=== PATIENT | female | born 1975 | race Caucasian/White ===

== ENCOUNTER 2016-12-08 19:05 | Inpatient (IN) | payer BC, OTHER ==
[~2016-12-08] VITALS: Ht 170.2 cm; Wt 52.2 kg
[2016-12-08] MEDS ORDERED: HYDROXYZINE PAMOATE 25 MG CAPSULE PO PRN (22:45)
[2016-12-08] MEDS ORDERED: ONDANSETRON 4 MG/2 ML VIAL IM PRN (22:45)
[2016-12-08] MEDS ORDERED: MAG HYDROX/AL HYDROX/SIMETH 30 ML LIQUID UDC PO PRN (22:45)
[2016-12-08] MEDS ORDERED: LOPERAMIDE HCL 2 MG CAPSULE PO PRN ×2 (22:45)
[2016-12-08] MEDS ORDERED: MAGNESIUM HYDROXIDE 30 ML LIQUID UDC PO PRN (22:45)
[2016-12-08] MEDS ORDERED: ONDANSETRON ODT 4 MG TAB.RAPDIS SL PRN (22:45)
[2016-12-08] MEDS ORDERED: CLONIDINE HCL 0.1 MG TABLET PO PRN (22:45)
[2016-12-08] MEDS ORDERED: DICYCLOMINE HCL 20 MG TABLET PO PRN (22:45)
[2016-12-08] MEDS ORDERED: BUPRENORPHINE HCL 2 MG TAB.SUBL SL PRN (22:45)
[2016-12-08] MEDS ORDERED: diphenhydrAMINE 50 MG CAPSULE PO PRN (22:45)
[2016-12-08] MEDS ORDERED: MIRALAX 17 GM POWD.PACK PO PRN (22:45)
--- NOTE | 2016-12-09 00:10 | NUR ---
Start of Shift Patient is a 40-year old, male, admitted and escorted by [facility] at 0000 to unit. Patient reports being homeless at this time and recently has gotten out of retirement. Pt is originally from [place], [place]. Skin check done, no open skin noted. No edema noted. Pt is ambulatory with steady gait. Pt stands 5'7.5" and weighs 115 pounds per standing scale. Vital signs are as follows: BP-103/84, T-98.4, P-92, RR-18 and SPO2 on RA=99%. Patient is AAOx4 and with no anxiety noted at this time. Lung sounds clear bilaterally upon auscultation. No cough noted and bowel sounds are present on all quadrants. PERRLA and pupils are 3 mm upon visual check. Pt noted to have racing thoughts. No suicidal ideation and homicidal ideation. Pt reports NKA, on Regular Diet and is Full Code. Pt denies any seizure history. Per pt, withdrawal symptoms are goosebumps, irritability, anxiety, chills, abdominal cramps, restless arms and legs, hot flushes, sweats, generalized muscle pain. Substance history as follows: 1) Heroin: Per pt, started at age 29 and for the past 6 months was using 1 gm via IV daily. Last use was on 12/08/2016 at 1000, 1 gm IV. 2) Xanax: Per pt, started at age 25 and for the past 2 weeks was using 3 mg PO daily on average. Last use was on 12/07/2016at 0900, 2 mg PO. 3) Methamphetamine: Per pt, started at age16 and for the past 3 months was using 1/16 gm via smoking daily. Last use was on 12/08/2016 at 2000, smoked 1/16 gm. Patient verbalized the she does not drink alcohol. Patient informed PMHx of Anxiety, Depression, Left hand abscess I&D (2004), Rectal Polyps Removal (7 yrs old) and when she was 16 years old. No Suicidal Ideation nor Homicidal Ideation at this time. No PCP per pt. Also, pt informed that she has a Psychiatrist and she forgot the name. Home medications were reconciled. Per pt, she has been to many Detox and Treatment facilities but can only remember the last 4 as follows: 1) [facility] [place] 05/2016 for 22 days 2) [facility], [place], 04/2016 30 days 3) [facility], [place], [place] 01/2015 30 days 4) [place], [place] 2013 to 2014, 1 year Patient reports smoking cigarettes, intermittently, about 1 pack per 3 days. Oriented patient to room and instructed with the use of the call light, placed within reach. Fall, universal, seizure and safety precautions implemented. Kept patient warm, dry and comfortable. With c/o generalized muscle pain=6/10 and abdominal cramps. All needs met. Information relayed to Dr. Bateman. Patient refused Pneumonia vaccines despite explanation of risks and benefits. Out of Season for Flu. COWS=10. Will continue to monitor.
[2016-12-09 00:15] VITALS: BP 103/84
[2016-12-09 00:39] LABS: *URINE HCG, QUAL NEGATIVE (NEGATIVE)
[2016-12-09 00:55] LABS: *AMPHETAMINE, URINE POSITIVE (NEGATIVE); *BARBITURATE, URINE NEGATIVE (NEGATIVE); *CANNABINOID, URINE NEGATIVE (NEGATIVE); *COCCAINE, URINE NEGATIVE (NEGATIVE); *OPIATE, URINE POSITIVE (NEGATIVE); *PHENCYCLIDINE SCREEN,URINE NEGATIVE (NEGATIVE)
[2016-12-09] MEDS ORDERED: LOPERAMIDE HCL 2 MG CAPSULE ONE (01:29)
[2016-12-09] MEDS ORDERED: IBUPROFEN 400 MG TABLET ONE (01:29)
[2016-12-09] MEDS ORDERED: BUPRENORPHINE HCL 2 MG TAB.SUBL SL ONE (01:29)
[2016-12-09] MEDS ORDERED: METHOCARBAMOL 750 MG TABLET ONE (01:29)
[2016-12-09] MEDS: METHOCARBAMOL 750 MG TABLET PO PRN ×2 (01:30→18:38)
--- NOTE | 2016-12-09 01:40 | NUR ---
RN note PRN Subutex, Imodium and Robaxin Pt c/o experiencing the withdrawal symptoms-noted with goosebumps, increasing anxiety, tremors and racing thoughts. Pt also c/o diarrhea 1-time and generalized muscle pain=02/08. Administered Subutex 4 mg SL, Imodium 4 mg PO and Robaxin 750 mg PO. Will reassess. Addendum: 12/09/16 at 0225 by MALCOM QUINONES RN COWS=12
[2016-12-09] MEDS: IBUPROFEN 600 MG TABLET PO PRN ×2 (01:46→18:38)
--- NOTE | 2016-12-09 01:46 | NUR ---
RN note Motrin Pt c/o headache=5/10. Administered Motrin 600 mg PO. Will reassess.
[2016-12-09] MEDS ORDERED: IBUPROFEN 600 MG TABLET ONE (01:50)
--- NOTE | 2016-12-09 02:55 | NUR ---
RN note reassess Pt asleep on bed, with no facial grimacing nor SOB noted.
[2016-12-09 04:00] VITALS: BP 112/66
--- NOTE | 2016-12-09 07:07 | NUR ---
End of Shift Patient is a 40-year old, female, admitted for Heroin and Xanax Dependence. Pt uses Heroin 1 gm IV daily for 6 months prior to admission. Patient is AAOx4 and with no anxiety noted at this time. Pt denies any seizure history. Pt is ambulatory with steady gait, with intact skin. Fall, universal, seizure and safety precautions implemented. Kept patient warm, dry and comfortable. All needs met. Latest COWS=9, slept for 3 hours. Endorsed to AM shift nurse for continuity of care. Addendum: 12/09/16 at 0716 by MALCOM QUINONES RN Pt brought home meds but reports not taking any medications for the past 3 months.
[2016-12-09 08:00] VITALS: BP 110/66
--- NOTE | 2016-12-09 08:05 | NUR ---
START OF SHIFT NOTE Received pt from night nurse. Pt admitted for heroin, benzo, and methamphetamine dependence. Pt reports past medical hx of anxiety, depression, , left hand abscess, and polyp removal. Pt placed on 5 day Subutex taper. Pt received PRN Subutex, Motrin, Robaxin, and Imodium. Effective per night nurse. Received pt aox4 in stable condition. Pt reported anxiety, tremors, and body aches. Will continue to provide safe and supportive environment. Call light within in reach.
[2016-12-09] MEDS ORDERED: TUBERCULIN,PURIF.PROT.DERIV. 5 TU/0.1 ML TEST ID ONE (09:00)
[2016-12-09] MEDS: BUPRENORPHINE HCL 2 MG TAB.SUBL SL SCH ×4 (09:26→21:26)
[2016-12-09] MEDS: MULTIVITAMINS,THERAPEUTIC TABLET PO SCH (09:26)
[2016-12-09 12:00] VITALS: BP 115/70
[2016-12-09] MEDS ORDERED: QUETIAPINE FUMARATE 25 MG TABLET PO PRN (15:15)
[2016-12-09 16:00] VITALS: BP 109/67
--- NOTE | 2016-12-09 18:38 | NUR ---
PRN MEDS Pt c/o muscle aches and general body pain 01/08, non [pharmacological intervention ineffective. Administered Motrin 600mg/Robaxin 750mg as ordered. Will cont to provide safe and hazard free environment and monitor for effectiveness of the medications.
--- NOTE | 2016-12-09 19:08 | NUR ---
END OF SHIFT NOTE Pt is alert awake oriented x4 in stable condition. Pt admitted for heroin, benzo, and methamphetamine dependence. Pt reports past medical hx of anxiety, depression, , left hand abscess, and polyp removal. Pt started on 5 day Subutex taper for COWS score noted 10 tolerated well. Pt received PRN Motrin/Robaxin at 1838 for muscle ache and generalized body aches endorsed to night nurse to reassess the pt. Pt attended some groups and activities. Last COWS 9. Pt's total intake of fluids 1301ml voided x3, no BM. Safety measures in place, call light within reach. Pt endorsed to night nurse in stable condition.
--- NOTE | 2016-12-09 19:38 | NUR ---
REASSESSMENT Upon reassessment pt reported medications effective. Pain subside to 2/10, muscle cramps subside.
[2016-12-09 20:00] VITALS: BP 112/71
--- NOTE | 2016-12-09 20:00 | NUR ---
Start of Shift Pt is a 40 year old female admitted for Opiate/Benzo/Meth dependence, placed on 5 day Subutex taper. NKA, fall precautions, regular diet and full code. PMH: anxiety, at age 16, Left hand abscess 2004 and polyps removal in rectum at age 7. Upon assessment, pt reports anxiety, muscle aches, restlessness, tremors felt upon touch, skin flushed/clammy - noted with sweat, denies n/v/d, denies SOB/chest pain. Will administer scheduled medications. BP 112/71, pulse 77, SpO2 98%, respirations 16, temp 98.1. Safety measures in place, will continue to monitor.
[2016-12-09] MEDS ORDERED: PRAZOSIN HCL 1 MG CAPSULE PO SCH (21:00)
[2016-12-09] MEDS ORDERED: QUETIAPINE FUMARATE 100 MG TABLET PO SCH (21:00)
[2016-12-10] VITALS: BP 99/51
--- NOTE | 2016-12-10 | NUR ---
Vital Signs BP 99/51, pulse 67, SpO2 100%, respirations 14, temp 97.9 COWS assessment deferred d/t pt sleeping, to assess while pt is awake as ordered Safety measures in place, will continue to monitor.
[2016-12-10] MEDS: IBUPROFEN 600 MG TABLET PO PRN (00:38)
--- NOTE | 2016-12-10 00:38 | NUR ---
PRN Motrin Upon awakening, pt reports back pain, rated 5/10, requested relief. Motrin 600mg PRN administered. Safety measures in place, will continue to monitor.
--- NOTE | 2016-12-10 01:38 | NUR ---
PRN Motrin Reassessment Upon reassessment of Motrin, pt is sleeping, no verbal cues of pain noted. Safety measures in place, will continue to monitor
[2016-12-10 04:00] VITALS: BP 102/59
--- NOTE | 2016-12-10 04:00 | NUR ---
Vital Signs BP 102/59, pulse 68, SpO2 99%, respirations 14, temp 98 COWS assessment deferred d/t pt sleeping, to assess while pt is awake as ordered Safety measures in place, will continue to monitor.
--- NOTE | 2016-12-10 07:00 | NUR ---
End of Shift Pt is a 40 year old female admitted for Opiate/Benzo/Meth dependence, placed on 5 day Subutex taper. NKA, fall precautions, regular diet and full code. PMH: anxiety, at age 16, Left hand abscess 2004 and polyps removal in rectum at age 7. During shift, pt presented with anxiety, muscle aches, restlessness, tremors, clammy/flushed skin - scheduled taper medications administered, COWS 8. PRN Motrin 600mg administered for back pain, upon reassessment of Motrin pt was sleeping, no verbal cues of pain noted. Pt slept for 7 hours, intake of 355 ml PO and voids x1. Safety measures in place, Endorsed to day shift nurse.
[2016-12-10 08:00] VITALS: BP 100/60
--- NOTE | 2016-12-10 08:10 | NUR ---
START OF SHIFT: RECEIVED PT A/O X 4. SHE STATES SHE SLEPT WELL DUE TO THE SEROQUEL THAT SHE WAS GIVEN LAST NIGHT BUT FEELS GROGGY FROM IT. SHE REPORTS MUSCLE ACHES,CHILLS,SWEATS,RESTLESSNESS AND IRRITABILITY. SUBUTEX TAPER IN PROGRESS. COWS 8. ENCOURAGED INCREASED FLUIDS TO ASSIST IN FACILITATING DETOX PROCESS. WILL CONTINUE TO MONITOR AND MANAGE S/S OF W/D.
[2016-12-10] MEDS: MULTIVITAMINS,THERAPEUTIC TABLET PO SCH (09:49)
[2016-12-10] MEDS: BUPRENORPHINE HCL 2 MG TAB.SUBL SL SCH ×3 (09:50→20:43)
[2016-12-10 12:00] VITALS: BP 112/62
[2016-12-10] MEDS: DIAZEPAM 10 MG TABLET PO SCH ×3 (13:12→20:39)
[2016-12-10 16:00] VITALS: BP 123/71
--- NOTE | 2016-12-10 19:03 | NUR ---
END OF SHIFT: PT CONTINUES ON SUBUTEX TAPER AND MD STARTED PT ON MODIFIED VALIUM TAPER FOR BZO W/D. SHE CONTINUES TO PRESENT WITH ANXIOUS MOOD AND CONGRUENT AFFECT. SHE C/O ANXIETY , SWEATS,CHILLS,BODY ACHES ,STOMACH CRAMPS AND RESTLESSNESS TODAY. LAST COWS 7 CIWA 3. SHE STATES DETOX MEDS ARE EFFECTIVE. SHE HAD LITTLE INTERACTION WITH PEERS AND RESTED TODAY. WILL PASS SHIFT REPORT TO ONCOMING NIGHT NURSE.
[2016-12-10 20:00] VITALS: BP 110/66
--- NOTE | 2016-12-10 20:00 | NUR ---
Start of Shift Pt is a 40 year old female admitted for Opiate/Benzo/Meth dependence, placed on 5 day Subutex taper. NKA, fall precautions, regular diet and full code. PMH: anxiety, at age 16, Left hand abscess 2004 and polyps removal in rectum at age 7. Upon assessment, pt reports anxiety, muscle/joint aches, mild pin/needle sensations restlessness, skin flushed/clammy, denies n/v/d, denies SOB/chest pain. Will administer scheduled medications. BP 110/66, pulse 79, SpO2 99%, respirations 16, temp 98.. Safety measures in place, Will continue to monitor.
[2016-12-10] MEDS: GABAPENTIN 300 MG CAPSULE PO SCH (20:39)
[2016-12-10] MEDS: QUETIAPINE FUMARATE 25 MG TABLET PO SCH (20:39)
[2016-12-10] MEDS: PRAZOSIN HCL 1 MG CAPSULE PO SCH (20:40)
[2016-12-10] MEDS ORDERED: QUETIAPINE FUMARATE 100 MG TABLET PO SCH (21:00)
[2016-12-11] VITALS: BP 96/54
--- NOTE | 2016-12-11 | NUR ---
Vital Signs BP 96/54, pulse 82, SpO2 97%, respirations 14, temp 97.9, no reports of pain COWS/CIWA Assessment deferred d/t pt sleeping, to assess while pt is awake as ordered. Pt is sleeping, Safety measures in place, Will continue to monitor.
[2016-12-11 04:00] VITALS: BP 94/59
--- NOTE | 2016-12-11 04:00 | NUR ---
Vital Signs BP 94/59, pulse 70, SpO2 98%, respirations 14, temp 97.9, no reports of pain COWS/CIWA Assessment deferred d/t pt sleeping, to assess while pt is awake as ordered. Pt is sleeping, Safety measures in place, Will continue to monitor.
--- NOTE | 2016-12-11 07:00 | NUR ---
End of Shift Pt is a 40 year old female admitted for Opiate/Benzo/Meth dependence, placed on 5 day Subutex taper and 4 day Valium taper. NKA, fall precautions, regular diet and full code. PMH: anxiety, at age 16, Left hand abscess 2004 and polyps removal in rectum at age 7. During shift, pt presented with anxiety, muscle/joint aches, mild pin/needles sensations, restlessness, skin flush/clammy scheduled taper medications administered, CIWA 3 and COWS 8. No PRN medications administered during shift. Pt slept for 7 hours, intake of 1047 ml PO and voids x2. Safety measures in place, Endorsed to day shift nurse.
[2016-12-11 08:00] VITALS: BP 100/60
--- NOTE | 2016-12-11 08:05 | NUR ---
START OF SHIFT: RECEIVED PT A/O X 4. SHE PRESENTS WITH ANXIOUS MOOD AND CONGRUENT AFFECT. SHE REPORTS SHE SLEPT WELL. SHE C/O BODY ACHES,CHILLS,ANXIETY,SWEATS AND FATIGUE. MODIFIED VALIUM/5D SUBUTEX TAPER IN PROGRESS.COWS 6 CIWA 2. ENCOURAGED INCREASED FLUIDS. ENCOURAGED GROUP ATTENDANCE TO IMPROVE COPING SKILLS AND PREVENT RELAPSE. WILL CONTINUE TO MONITOR AND PROVIDE SAFE AND SUPPORTIVE ENVIRONMENT.
[2016-12-11] MEDS: GABAPENTIN 300 MG CAPSULE PO SCH ×3 (08:36→21:41)
[2016-12-11] MEDS: MULTIVITAMINS,THERAPEUTIC TABLET PO SCH (08:36)
[2016-12-11] MEDS: DIAZEPAM 5 MG TABLET PO SCH ×4 (08:37→21:41)
[2016-12-11] MEDS ORDERED: BUPRENORPHINE HCL 2 MG TAB.SUBL SL SCH (09:00)
[2016-12-11] MEDS ORDERED: KETOROLAC TROMETHAMINE 30 MG INJ IM PRN (11:30)
[2016-12-11 12:00] VITALS: BP 124/82
[2016-12-11] MEDS: buPROPion XL 150 MG TAB.SR.24H PO SCH (12:28)
[2016-12-11] MEDS ORDERED: CLONIDINE HCL 0.1 MG TABLET PO SCH (15:00)
[2016-12-11] MEDS: DICYCLOMINE HCL 20 MG TABLET PO SCH ×2 (15:45→21:41)
[2016-12-11] MEDS: BACLOFEN 10 MG TABLET PO SCH ×2 (15:45→21:40)
[2016-12-11] MEDS: BUPRENORPHINE HCL 2 MG TAB.SUBL SL SCH ×2 (15:46→21:43)
[2016-12-11 16:00] VITALS: BP 105/66
--- NOTE | 2016-12-11 16:36 | NUR ---
PT CONTINUES TO REFUSE BLOOD WORK AND SHE STATES IT IS BECAUSE SHE IS A HARD STICK. AWARE.
--- NOTE | 2016-12-11 19:08 | NUR ---
END OF SHIFT: PT CONTINUES ON MODIFIED VALIUM AND SUBUTEX TAPER. SHE COMPLAINED OF CHILLS, FATIGUE, ANXIETY BODY ACHES, AND WATERY EYES THIS MORNING. SHE STATES DETOX MEDS ARE MILDLY EFFECTIVE IN REDUCING S/S OF W/D. NEW ORDER FOR SCHEDULED BACLOFEN AND CLONIDINE. PT NAPPED THIS AFTERNOON FOR A COUPLE OF HOURS. LAST COWS 6 CIWA 2. SHE STATES SHE WILL SHOWER TONIGHT . ENCOURAGED PROPER NUTRITION AND INCREASED FLUIDS. ENCOURAGED GROUP ATTENDANCE. WILL PASS SHIFT REPORT TO ONCOMING NIGHT NURSE.
--- NOTE | 2016-12-11 19:10 | NUR ---
Start of Shift - Subutex 4mg x1 Administration Pt is a 40 year old female admitted for Opiate/Benzo/Meth dependence, placed on 5 day Subutex taper. NKA, fall precautions, regular diet and full code. PMH: anxiety, at age 16, Left hand abscess 2004 and polyps removal in rectum at age 7. Upon assessment, pt reports anxiety, pt is fidgety, restless unable to sit still, muscle/joint aches, skin flushed/clammy, mildly nausea, denies SOB/chest pain. COWS 8. Administered Subutex 4mg x1 as ordered. Maalox 30ml administered for heartburn. Safety measures in place, will continue to monitor. Addendum: 12/11/16 at 2341 by ADAMARIS POSADAS RN Pt is placed on 5 day Subutex taper/4 day Valium taper
[2016-12-11] MEDS ORDERED: BUPRENORPHINE HCL 2 MG TAB.SUBL SL ONE (19:15)
[2016-12-11 20:00] VITALS: BP 120/72
--- NOTE | 2016-12-11 20:25 | NUR ---
Subutex 4mg x1 Reassessment Upon reassessment, pt is in room, in bed, watching TV. Pt continues to report muscle aches throughout body, anxiety, skin noted to be flushed, denies nausea, Pt states, "I feel a little steadier". COWS 6. Pt denies heartburn - Maalox effective. Will administered scheduled routine medications. Safety measures in place, Will continue to monitor.
[2016-12-11] MEDS: QUETIAPINE FUMARATE 25 MG TABLET PO SCH (21:40)
[2016-12-11] MEDS: PRAZOSIN HCL 1 MG CAPSULE PO SCH (21:40)
[2016-12-12] VITALS: BP_SYST 108; BP_SYST 116; BP_DIAS 63; BP_DIAS 79
--- NOTE | 2016-12-12 | NUR ---
Vital Signs BP 116/79, pulse 94, SpO2 99%, respirations 14, temp 98, no reports of pain 0/10. COWS/CIWA assessment deferred d/t pt sleeping, to assess while pt is awake, as ordered. Safety measures in place, Will continue to monitor.
--- NOTE | 2016-12-12 04:00 | NUR ---
Pt refused to be woken up for VS at this time. Pt was encouraged x3 - risks and benefits explained - pt continued to refuse. COWS/CIWA deferred d/t pt sleeping to assess while awake as ordered. Safety measures in place. Will continue to monitor.
--- NOTE | 2016-12-12 07:00 | NUR ---
End of Shift Pt is a 40 year old female admitted for Opiate/Benzo/Meth dependence, placed on 5 day Subutex taper/4 day Valium taper. NKA, fall precautions, regular diet and full code. PMH: anxiety, at age 16, Left hand abscess 2004 and polyps removal in rectum at age 7. During shift, pt presented with anxiety, pt was fidgety, restless unable to sit still, muscle/joint aches, skin flushed/clammy, mildly nausea, administered Subutex 4mg x1 as ordered. Scheduled medications administered as well, effective in management of s/s of withdrawal. COWS 8 decreased to COWS 6. CIWA 2. Maalox 30ml administered for heartburn, effective as reported per pt. Pt continues on Subutex and Valium taper. Pt slept for 5 hours, intake of 2292 ml PO and voids x2. Safety measures in place, call light within reach, side rails up x2, bed locked and in low position. Endorsed to day shift nurse.
[2016-12-12 08:00] VITALS: BP 108/71
--- NOTE | 2016-12-12 08:00 | NUR ---
START OF SHIFT Report received from angle furnaceman nurse. Received patient laying in her bed. Pt is a 40 year old female admitted for medically supervised withdrawal from Opiates. Patient is full code with NKA, on fall precautions and regular diet. On 4 day Valium taper/5 Day Subutex taper. On assessment this AM: CIWA: 4 and COWS: 12. Patient reports muscle/joint aches, difficult sitting still, diaphoresis, anxiety, stuffy nose and teary eyes, goosebumps, stomach cramps. Patient denies SOB/chest pain. Med compliant. Subutex and Valium given as ordered. Patient reports that she is supposed to take 4mg, patient was reminded she is on taper dose, MD was notified. Patient has good appetite. No PRN given at this time. Will continue to monitor patient.
[2016-12-12] MEDS: CLONIDINE HCL 0.1 MG TABLET PO SCH ×2 (08:47→15:17)
[2016-12-12] MEDS: MULTIVITAMINS,THERAPEUTIC TABLET PO SCH (08:47)
[2016-12-12] MEDS: DICYCLOMINE HCL 20 MG TABLET PO SCH ×3 (08:47→21:18)
[2016-12-12] MEDS: GABAPENTIN 300 MG CAPSULE PO SCH ×3 (08:47→21:18)
[2016-12-12] MEDS: buPROPion XL 150 MG TAB.SR.24H PO SCH (08:48)
[2016-12-12] MEDS: BACLOFEN 10 MG TABLET PO SCH ×2 (08:48→15:16)
[2016-12-12] MEDS: DIAZEPAM 5 MG TABLET PO SCH ×2 (08:51→15:17)
[2016-12-12] MEDS: BUPRENORPHINE HCL 2 MG TAB.SUBL SL SCH ×3 (08:54→21:18)
[2016-12-12 12:00] VITALS: BP 93/55
[2016-12-12 15:14] VITALS: BP 119/70
[2016-12-12 16:00] VITALS: BP 116/63
--- NOTE | 2016-12-12 17:27 | NUR ---
PRN VISTARIL Patient appears extremely anxious prior to lab draw, she was hyperverbal, restless and crying states she was afraid to get stuck by needles. Patient was given Vistaril po. Will continue to monitor patient.
[2016-12-12 17:53] LABS: BASOPHILS # (AUTO) 0.3 K/uL (0.0-0.2); BASOPHILS % (AUTO) 2.6 % (0.0-2.0); EOSINOPHILS # (AUTO) 0.5 K/uL (0.0-0.7); EOSINOPHILS % (AUTO) 4.4 % (0.0-7.0); HEMATOCRIT 39.4 % (37.0-47.0); HEMOGLOBIN 13.9 g/dL (12.0-16.0); LYMPHOCYTES # (AUTO) 2.4 K/uL (0.8-4.8); LYMPHOCYTES % (AUTO) 20.6 % (20.5-51.5); MEAN CORPUSCULAR HEMOGLOBIN 29.6 uug (27.0-31.0); MEAN CORPUSCULAR HGB CONC 35 g/dL (32.0-37.0); MEAN CORPUSCULAR VOLUME 84.3 fL (81.0-99.0); MONOCYTES # (AUTO) 0.6 K/uL (0.1-1.30); MONOCYTES % (AUTO) 5.4 % (0.0-11.0); NEUTROPHILS # (AUTO) 7.7 K/uL (1.8-8.9); PLATELET COUNT (AUTO) 271 K/uL (150-450); RED BLOOD CELL COUNT(AUTO) 4.68 MIL/uL (4.20-5.40); RED CELL DISTRIBUTION WIDTH 12.5 % (11.5-14.5); WHITE BLOOD COUNT (AUTO) 11.5 K/uL (4.0-11.2)
[2016-12-12] MEDS ORDERED: LORAZEPAM 1 MG TABLET PO ONE (18:00)
[2016-12-12] MEDS ORDERED: BUPRENORPHINE HCL 2 MG TAB.SUBL SL ONE (18:00)
--- NOTE | 2016-12-12 18:25 | NUR ---
REASSESSMENT PRN Vistaril effective, patient appears less agitated, walking around and less hyperverbal.
--- NOTE | 2016-12-12 19:29 | NUR ---
END OF SHIFT Pt is a 40 year old female admitted for medically supervised withdrawal from Opiates. Patient is full code with NKA, on fall precautions and regular diet. Patient reports muscle/joint aches, restlessness, diaphoresis, anxiety, stuffy nose, teary eyes, goosebumps, stomach cramps. Patient denies SOB/chest pain. Subutex and Valium given as ordered. Patient wants to discuss desire to get off Valium taper and start on Ativan taper, complains of not feeling herself, not being able to interact with others and participate in groups. MD was notified, patient had discussion with the MD. Patient appears anxious about having lab drawn due to being hard stick and requested for good seaming inspector. Lab was notified of the request. Patient was noted crying due to anxiety, pt. was reassured and assisted to calm down. Vistaril prn given, mildly effective. Lab drawn but hemolyzed, lab unable to process sample, MD was notified. Patient not willing to have another lab drawn. Patient also received ONE time Ativan and Subutex as ordered. Most recent assessment: CIWA: 11 and COWS: 11. grinder machine knife setternarrow fabric calenderer will continue to monitor patient.
--- NOTE | 2016-12-12 19:40 | NUR ---
START OF SHIFT NOTE Received report from day shift nurse. Pt is 40 y o female, admitted on 12/08/16 for heroin and Xanax dependence, pt reported also using methamphetamine. Pt is on 5 day Subutex taper started 12/09/16 and Ativan taper (pt has started Valium taper on 12/10/16, was changed to Ativan on 12/12/16 per pt c/o feeling drowsy after taking Valium). Pt aaox4, gait steady. Pt reports anxiety, obviously irritated aeb fast speech and flight of thoughts, inability to sit still and hyperactivity. Pt reports sweats, chills, body aches 03/10. Skin intact, barely sweaty. Skin intact, barely sweaty. RR unlabored, heart rate regular. Last BM 12/12/16, pt denies n/v/d. Pt denies urinary difficulties. Pt is on fall precautions, call light within reach, bed locked in lowest position, side rails up x 2. Will continue with plan of care
[2016-12-12 20:00] VITALS: BP 119/68
[2016-12-12] MEDS ORDERED: LORAZEPAM 1 MG TABLET PO SCH (21:00)
[2016-12-12] MEDS ORDERED: BACLOFEN 10 MG TABLET PO SCH (21:00)
[2016-12-12] MEDS: BACLOFEN 20 MG TABLET PO SCH (21:19)
[2016-12-12] MEDS: QUETIAPINE FUMARATE 25 MG TABLET PO SCH (21:22)
[2016-12-12] MEDS: PRAZOSIN HCL 1 MG CAPSULE PO SCH (21:22)
--- NOTE | 2016-12-12 21:55 | NUR ---
behavioral note Pt comes to nursing station and asks about "extra Subutex". Pt has received scheduled 2 mg of Subutex and all administered meds were explained to pt with pt verbal agreement and understanding of indications/ doses/ Pt states "we had a deal with Dr Bateman that if i had blood drawn i could get extra subutex". As per rerpot from day shift nurse, pt received one time ativan for anxiety before blood draw, per day shift nurse no extra subutex was ordered. Explained to pt that she just received scheduled dose and that she has non-narcotic meds for s/s management throughout the night. Pt stated "i will just leave ama then", yet in 5min pt comes back and asks about Subutex again. Pt explained that no "extra dose" can be administered at this time, pt verbilized understanding
[2016-12-12] MEDS: IBUPROFEN 600 MG TABLET PO PRN (22:35)
--- NOTE | 2016-12-12 22:35 | NUR ---
PRN MOTRIN Pt c/o back aches and generalized aches 03/10. Administered [id number] mg PO prn as ordered. Warm compress applied for comfort. Fall precautions in place
--- NOTE | 2016-12-12 23:30 | NUR ---
PRN REASSESSMENT Pt states pain decrease to 4/10. Pt states she feels like going to sleep now. Fall precautions in place, will continue to monitor
[2016-12-13] VITALS: BP 108/63
--- NOTE | 2016-12-13 | NUR ---
CIWA/COWS COWS/CIWA assessment deferred per MD order; pt sleeping soundly, fall precautions in place, will continue to monitor Addendum: 12/13/16 at 0427 by PORTILLO DURON RN Amended: Links added.
--- NOTE | 2016-12-13 | NUR ---
CIWA/COWS COWS/CIWA assessment deferred per MD order; pt sleeping soundly, fall precautions in place, will continue to monitor Addendum: 12/13/16 at 0426 by PORTILLO DURON RN Amended: Links added.
[2016-12-13 04:00] VITALS: BP 98/59
--- NOTE | 2016-12-13 04:00 | NUR ---
CIWA/COWS COWS/CIWA assessment deferred per MD order; pt sleeping soundly, fall precautions in place, will continue to monitor Addendum: 12/13/16 at 0709 by PORTILLO DURON RN Amended: Links added.
--- NOTE | 2016-12-13 06:50 | NUR ---
PRN MOTRIN Pt c/o back aches and generalized aches 5/10. Administered Motrin 600 mg PO prn as ordered. Warm compress applied for comfort. Fall precautions in place
[2016-12-13] MEDS: IBUPROFEN 600 MG TABLET PO PRN ×2 (06:53→20:03)
--- NOTE | 2016-12-13 07:42 | NUR ---
END OF SHIFT NOTE Pt is 40 y o female, admitted on 12/08/16 for heroin and Xanax dependence, pt reported also using methamphetamine. Pt is on day 5 of 5 day Subutex taper started 12/09/16, and day 4 of 4 day Ativan taper (pt has started Valium taper on 12/10/16, was changed to Ativan on 12/12/16 per pt c/o feeling drowsy after taking Valium). Pt was reporting anxiety, body aches 7/10, chills, stomach cramps; pt observed with clammy skin, restlessness. Scheduled medications were administered as ordered. Pt received prn Motrin for body aches x 2, pt reported decrease in pain level to 4/10. Pt was observed with drug-seeking behavior during the shift, no cheeking of medications noted. Pt slept for 6 hrs, woke up with unsteady gait, was assisted to bed with fall precautions in place. Pt currently in bed, sleeping soundly, report endorsed to day shift nurse. Addendum: 12/13/16 at 0754 by PORTILLO DURON RN Carlos A MARIANO 11, DORON 8 at 1999, VSS
--- NOTE | 2016-12-13 07:50 | NUR ---
START OF SHIFT Rcvd client in room, she is A/O x 4, she presents with irritable mood, flat affect, she reports anxiety, fatigue, and leg restlessness and generalized body aches 12/09. Encouraged increased fluids as tolerated. Encouraged group therapy attendance. Per hourly shift manager nurse, client is a 40 year old female admitted for withdrawal from heroin. She is on 5 day Subutex taper/ 4 day Ativan taper, tolerating well. Last COWS /WA 8 @ 1999, She had PRN Motrin X 2 for gereralized body aches, noted effective. She slept 7 hrs. She reports PMH Anxiety, Depression, Insomnia, Chronic tobacco use, Opioid use disorder, Alcohol use disorder, Anxiolytic use disorder, Stimulant use disorder. Surgical history, Rectal surgery w/ polypectomy, Left hand abscess incision and drainage. Client denies any induced-seizure withdrawal. She is full code, regular diet, NKA. Client is on seizure precautions. Side rails up/padded x 2, call light within reach, bed locked in lowest positions. Will continue with plan of care
[2016-12-13 08:00] VITALS: BP 91/58
--- NOTE | 2016-12-13 08:15 | NUR ---
CIWA/COWS COWS/CIWA assessment deferred per MD order; pt sleeping soundly, fall precautions in place, will continue to monitor
[2016-12-13] MEDS: DICYCLOMINE HCL 20 MG TABLET PO SCH ×3 (09:00→21:42)
[2016-12-13] MEDS: GABAPENTIN 300 MG CAPSULE PO SCH ×3 (09:00→21:42)
[2016-12-13] MEDS: MULTIVITAMINS,THERAPEUTIC TABLET PO SCH (09:00)
[2016-12-13] MEDS: LORAZEPAM 1 MG TABLET PO SCH ×2 (09:00→21:42)
[2016-12-13] MEDS: BUPRENORPHINE HCL 2 MG TAB.SUBL SL SCH ×2 (09:00→21:42)
[2016-12-13] MEDS ORDERED: buPROPion SR 100 MG TABLET.SA PO SCH (09:00)
[2016-12-13] MEDS: buPROPion XL 150 MG TAB.SR.24H PO SCH ×2 (09:00→15:09)
[2016-12-13] MEDS ORDERED: BUPRENORPHINE HCL 2 MG TAB.SUBL SL SCH (09:00)
[2016-12-13] MEDS ORDERED: DIAZEPAM 5 MG TABLET PO SCH (09:00)
[2016-12-13] MEDS: BACLOFEN 20 MG TABLET PO SCH ×3 (09:00→21:42)
[2016-12-13] MEDS: CLONIDINE HCL 0.1 MG TABLET PO SCH ×3 (09:00→23:24)
--- NOTE | 2016-12-13 09:59 | NUR ---
schedule medications for 0900 held client is too sedated, RR 16, Charge nurse and Dr. Bateman notified. Call light within reach. Will continue to monitor.
[2016-12-13] MEDS ORDERED: BUPRENORPHINE HCL 2 MG TAB.SUBL SL ONE ×2 (11:30→15:30)
[2016-12-13] MEDS ORDERED: IBUPROFEN 600 MG TABLET PO ONE (11:30)
[2016-12-13] MEDS ORDERED: LORAZEPAM 1 MG TABLET PO ONE (11:30)
[2016-12-13 12:00] VITALS: BP 106/69
--- NOTE | 2016-12-13 12:22 | NUR ---
one time Subutes 4mg, Ativan 1mg, Motrin 600mg Client reports anxiety, chills, goosebump, generalized body aches 02/08. Dr. Bateman ordered one time of above meds. call light within reach.
--- NOTE | 2016-12-13 13:22 | NUR ---
Reassessment one time Subutes 4mg, Ativan 1mg, Motrin 600mg Client is in bed, watching TV, she reports feeling less anxious at this time, generalized body aches 0/10. call light within reach.
[2016-12-13 16:00] VITALS: BP 111/67
[2016-12-13] MEDS: buPROPion SR 100 MG TABLET.SA PO SCH (16:26)
[2016-12-13] MEDS: METHOCARBAMOL 750 MG TABLET PO PRN (16:38)
[2016-12-13] MEDS: ACETAMINOPHEN 325 MG TABLET PO PRN (16:38)
--- NOTE | 2016-12-13 16:38 | NUR ---
PRN Tylenol, Robaxin Client reports generalized body aches 02/08 Robaxin 750mg, Tylenol 650mg PO administered, risk.benefits discuss. Call light within reach.
--- NOTE | 2016-12-13 17:38 | NUR ---
Reassessment PRN Tylenol, Robaxin Client reports relief from generalized body aches 0/10 Robaxin 750mg, Tylenol 650mg effective. Call light within reach.
--- NOTE | 2016-12-13 19:45 | NUR ---
END OF SHIFT Client is 40 year old female, admitted on 12/08/16 for heroin and Xanax withdrawal.Client reports anxiety, chills, stomach cramps. One time dose Subutex 4mg, Ativan 1mg, Motrin 600mg for anxiety, chills, body aches, noted effective. PRN Tylenol, Robaxin for generalized body aches, noted effective. Client denies any induced-seizure withdrawal. She is full code, regular diet, NKA. Client is on seizure precautions. Side rails up/padded x 2, call light within reach, bed locked in lowest positions. Will continue with plan of care
--- NOTE | 2016-12-13 19:46 | NUR ---
Start of shift note Received report from day shift nurse. Pt is a 41 yo female, A+Ox4, presenting to [facility] for Opiate/Benzo/Meth dependence. Pt has NKA, is Full Code status, and on Regular diet. Pt is on fall precautions. Pt has HX of Anxiety, Depression, , Left hand abscess, and Polyps removal. Pt is on 5 day Subutex and 4 day Ativan tapers, tolerated well. No s/s of distress noted at this time. Respirations even and unlabored. Will continue to monitor.
--- NOTE | 2016-12-13 20:03 | NUR ---
PRN Motrin Pt c/o general body pain 02/08 and requested for PRN Motrin. Medication given and tolerated well. Will reassess within 1 HR. Will continue to monitor.
[2016-12-13 20:18] VITALS: BP 102/64
[2016-12-13] MEDS: PRAZOSIN HCL 1 MG CAPSULE PO SCH (21:00)
--- NOTE | 2016-12-13 21:00 | NUR ---
PRN Motrin Reassessment Medication effective. Pain level reduced to 3/10. No s/s of ASE/distress noted at this time. Respirations even and unlabored. Will continue to monitor.
[2016-12-13] MEDS: QUETIAPINE FUMARATE 25 MG TABLET PO SCH (23:24)
--- NOTE | 2016-12-13 23:24 | NUR ---
PRN Clonidine Pt c/o anxiety and requested for PRN Clonidine. Medication given and tolerated well. Will reassess within 1 HR. Will continue to monitor.
[2016-12-14 00:14] VITALS: BP 116/67
--- NOTE | 2016-12-14 00:20 | NUR ---
PRN Clonidine Reassessment Medication effective. Pt verbalizes reduction in anxiety. No s/s of ASE/distress noted at this time. Respirations even and unlabored. Will continue to monitor.
[2016-12-14 04:14] VITALS: BP 90/43
--- NOTE | 2016-12-14 07:03 | NUR ---
End of shift note Pt is a 41 yo female, A+Ox4, presenting to [facility] for Opiate/Benzo/Meth dependence. Pt has NKA, is Full Code status, and on Regular diet. Pt is on fall precautions. Pt has HX of Anxiety, Depression, , Left hand abscess, and Polyps removal. Pt is on 5 day Subutex and 4 day Ativan tapers, tolerated well. Pt was given PRN Motrin @2002 and PRN Clonidine @2324. Pt slept for a total of 5 HRS. Last COWS: 2 and Last CIWA: 2 @0400. No s/s of distress noted at this time. Respirations even and unlabored. Will endorse to day shift nurse.
--- NOTE | 2016-12-14 07:40 | NUR ---
START OF SHIFT Client is is A/O x 4, she presents with flat affect, she reports anxiety, fatigue, and leg restlessness and chills, she denies N/V/D. Encouraged increased fluids as tolerated. Encouraged group therapy attendance. Per plant breeder scientist nurse, client is a 40 year old female admitted for withdrawal from heroin. Today0 is last 5 day Subutex taper, she completed 4 day Ativan taper, tolerating well. Last COWS 2/CIWA 2 @ 0400, She had PRN Motrin X 2 for generalized body aches, Clonidine for withdrawal symptoms noted effective. She slept 5 hr. She is full code, regular diet, NKA. Client is on seizure precautions. Side rails up/padded x 2, call light within reach, bed locked in lowest positions. Will continue with plan of care
--- NOTE | 2016-12-14 08:30 | NUR ---
ABNORMAL LAB VALUES Dr. Benitez was notified, client is elin castillo. Will continue to monitor and f-up with new orders. Addendum: 12/14/16 at 1611 by LORIE NOLAND RN wrong client
[2016-12-14] MEDS: MULTIVITAMINS,THERAPEUTIC TABLET PO SCH (08:43)
[2016-12-14] MEDS: GABAPENTIN 300 MG CAPSULE PO SCH ×3 (08:43→21:12)
[2016-12-14] MEDS: IBUPROFEN 600 MG TABLET PO PRN (08:43)
[2016-12-14] MEDS: buPROPion SR 100 MG TABLET.SA PO SCH (08:44)
[2016-12-14] MEDS: buPROPion XL 150 MG TAB.SR.24H PO SCH (08:44)
[2016-12-14] MEDS: BACLOFEN 20 MG TABLET PO SCH ×3 (08:44→21:11)
[2016-12-14] MEDS: DICYCLOMINE HCL 20 MG TABLET PO SCH ×3 (08:44→21:11)
[2016-12-14 08:50] VITALS: BP 100/70
[2016-12-14] MEDS ORDERED: CLONIDINE HCL 0.1 MG TABLET PO SCH (09:00)
[2016-12-14] MEDS ORDERED: BUPRENORPHINE HCL 2 MG TAB.SUBL SL SCH (09:00)
[2016-12-14 12:00] VITALS: BP 105/58
[2016-12-14] MEDS ORDERED: PRAZ1CAP2 PO (13:06)
[2016-12-14] MEDS ORDERED: Gabapentin PO ×2 (13:06)
[2016-12-14] MEDS ORDERED: QUET25TA PO (13:06)
[2016-12-14] MEDS ORDERED: Ibuprofen PO (13:06)
[2016-12-14] MEDS ORDERED: METH-33 PO (13:06)
[2016-12-14] MEDS ORDERED: Bupropion Hcl PO (13:06)
[2016-12-14] MEDS ORDERED: HYDR-3895 PO (13:06)
[2016-12-14] MEDS ORDERED: DICY20TA28 PO (13:06)
--- NOTE | 2016-12-14 15:00 | NUR ---
Magnesium 1.6 replaced with Mag Ox 400mg PO will continue to monitor. Addendum: 12/14/16 at 1611 by LORIE NOLAND RN wrong client
[2016-12-14] MEDS ORDERED: BACLOFEN 10 MG TABLET PO ONE (15:15)
[2016-12-14] MEDS ORDERED: CLONIDINE HCL 0.1 MG TABLET PO ONE (15:15)
--- NOTE | 2016-12-14 15:33 | NUR ---
ONE TIME DOSE Baclofen 10mg and Clonidine 0.1mg PO given respectively for muscle spasms and anxiety, irritability, client is crying, she reports chills. wCall light within reach. will continue to monitor.
[2016-12-14 16:00] VITALS: BP 99/54
--- NOTE | 2016-12-14 16:33 | NUR ---
REASSESSMENT ONE TIME DOSE Baclofen 10mg and Clonidine 0.1mg Client is in room soud asleep, easy to arouse, RR 16. Will continue to monitor. Call light within reach.
[2016-12-14] MEDS: METHOCARBAMOL 750 MG TABLET PO PRN (18:26)
--- NOTE | 2016-12-14 18:26 | NUR ---
PRN ROBAXIN 750MG, TYLENOL 655MG given respectively for muscle pain and discomfort, Call light within reach. will continue to monitor.
[2016-12-14] MEDS: ACETAMINOPHEN 325 MG TABLET PO PRN (18:27)
--- NOTE | 2016-12-14 19:26 | NUR ---
REASSESSMENT PRN ROBAXIN 750MG, TYLENOL 655MG effective, client reports relief from muscle pain and discomfort from 6/10 to 0/10, Call light within reach. will continue to monitor.
--- NOTE | 2016-12-14 19:43 | NUR ---
END OF SHIFT Client is 40 year old female, admitted on 12/08/16 for heroin and Xanax withdrawal.Client reports anxiety, she presents with irritable mood. ONE TIME DOSE Baclofen 10mg and Clonidine 0.1mg PO given respectively for muscle spasms and anxiety, irritability, client is crying, she reports chill and PRN ROBAXIN 750MG, TYLENOL 655MG given respectively for muscle pain and discomfort, noted effective. She is full code, regular diet, NKA. Client is on seizure precautions. Side rails up/padded x 2, call light within reach, bed locked in lowest positions. Endorsed to incoming nurse.
[2016-12-14 20:00] VITALS: BP 91/52
--- NOTE | 2016-12-14 21:00 | NUR ---
START OF SHIFT NOTE: Patient is going to be discharged tomorrow. V/S-WNLs. Patient is alert, oriented, mild agitation, mild discomfort reported. No pain, no nausea, no vomiting. Patient was admitted on 12/08/16 for heroin and Xanax withdrawal. All medications were given as ordered. She is med seeking and requested Clonidine. Educated patient on side effects of medications taken before discharge. Patient continues on seizure precautions. Side rails up x 2, call light within reach. Will continue to provide safe and supportive environment.
[2016-12-14] MEDS: QUETIAPINE FUMARATE 25 MG TABLET PO SCH (21:12)
[2016-12-14] MEDS: PRAZOSIN HCL 1 MG CAPSULE PO SCH (21:12)
[2016-12-15] VITALS: BP 96/58
[2016-12-15 00:11] LABS: *AMPHETAMINE, URINE NEGATIVE (NEGATIVE); *BARBITURATE, URINE NEGATIVE (NEGATIVE); *CANNABINOID, URINE NEGATIVE (NEGATIVE); *COCCAINE, URINE NEGATIVE (NEGATIVE); *OPIATE, URINE NEGATIVE (NEGATIVE); *PHENCYCLIDINE SCREEN,URINE NEGATIVE (NEGATIVE)
[2016-12-15 04:00] VITALS: BP 96/58
--- NOTE | 2016-12-15 06:25 | NUR ---
END OF SHIFT NOTE: Patient slept comfortably 7 hrs 30 min during the night. V/S-WNLs. Breathing even, unlabored, lungs clear, no pain, no discomfort reported. No PRN medications during the night given. Patient is alert, oriented x4, makes her needs known to staff. Skin intact, abdomen soft, b/s present x4q. Voiding freely. Fluids encouraged. Patient continues on seizure precautions. Side rails up x 2. Report was given to day shift nurse.
--- NOTE | 2016-12-15 07:30 | NUR ---
START OF SHIFT Client is is A/O x 4, she presents with irritable mood, flat affect, she reports mild anxiety, and fatigue. she denies N/V/D. Encouraged increased fluids as tolerated. Encouraged group therapy attendance. She is schedule for discharge to replaced by [facility] at noon to [facility]Per hourly shift nurse, client is a 40 year old female admitted for withdrawal from heroin. She completed 5 day Subutex taper and 4 day Ativan taper, tolerated well. Last COWS / 2 @ 1999, She had an uneventful night, she slept 7.5 hr. She is full code, regular diet, NKA. Client is on seizure precautions. Side rails up/padded x 2, call light within reach, bed locked in lowest positions. Will continue with plan of care
[2016-12-15] MEDS: BACLOFEN 20 MG TABLET PO SCH (08:25)
[2016-12-15] MEDS: DICYCLOMINE HCL 20 MG TABLET PO SCH (08:25)
[2016-12-15] MEDS: buPROPion SR 100 MG TABLET.SA PO SCH (08:25)
[2016-12-15] MEDS: GABAPENTIN 300 MG CAPSULE PO SCH (08:25)
[2016-12-15] MEDS: buPROPion XL 150 MG TAB.SR.24H PO SCH (08:25)
[2016-12-15] MEDS: MULTIVITAMINS,THERAPEUTIC TABLET PO SCH (08:26)
--- NOTE | 2016-12-15 12:35 | NUR ---
DISCHARGE NOTE Pt was admitted for withdrawal from heroin. Last CIWA . Client denies any pain or ALVARADO. Client denies any SI/HI ideation. Vital signs stable. Client states that she feels ready for discharge. Client medications, discharge instructions and valuables secures in duffle bag and then given to COLD ROLL INSPECTOR. All belongings returned to client, she verbalized his discharge instructions, her ID band removed. Client ambulated off of the unit. She left via [facility] to [facility] in stable condition.
[2016-12-16 13:06] LABS: *AMPHETAMINE Positive (.); *BENZODIAZEPINES Negative (Cutoff=300); *CODEINE Negative (Cutoff=300); *HYDROMORPHONE Negative (Cutoff=300); *METHAMPHETAMINE Positive (.); *OPIATES Positive ng/mL (Cutoff=300)
== END 2016-12-15 12:35 | disposition home or self-care (01) | DRG 895 ==
LOC: SRC 22:29
PROVIDERS: ADMIT Internal Medicine; ATTEND Internal Medicine
PROC: HZ2ZZZZ Detoxification Services for Substance Abuse Treatment (ICD-10-PCS; principal; 2016-12-08)
PROC: HZ31ZZZ Individual Counseling for Substance Abuse Treatment, Behavioral (ICD-10-PCS; 2016-12-10)
PROC: HZ41ZZZ Group Counseling for Substance Abuse Treatment, Behavioral (ICD-10-PCS; 2016-12-11)
DX: F11.23 Opioid dependence with withdrawal (principal); F13.230 Sedative, hypnotic or anxiolytic dependence with withdrawal, uncomplicated; F15.23 Other stimulant dependence with withdrawal; Z80.1 Family history of malignant neoplasm of trachea, bronchus and lung; Z81.1 Family history of alcohol abuse and dependence; Z81.3 Family history of other psychoactive substance abuse and dependence; Z59.0 Homelessness; Z59.1 Inadequate housing; F41.9 Anxiety disorder, unspecified; F17.211 Nicotine dependence, cigarettes, in remission; G47.00 Insomnia, unspecified; Z76.5 Malingerer [conscious simulation]; Z91.19 Patient's noncompliance with other medical treatment and regimen; F10.21 Alcohol dependence, in remission
CPT/HCPCS: 36415; 70030-TC; 80307; 80324; 80346; 80361; 84703; 85025; 86580; A4663